=== PATIENT | female | born 1985 | race Caucasian/White ===

== ENCOUNTER 2017-01-10 23:38 | Emergency (ER) | payer OTHER ==
[2017-01-11 00:15] LABS: BASOPHIL % 0.5 % (0-2); PLATELET COUNT 154 x10^3mcL (130-400); RED CELL DISTRIBUTION WIDTH 13.6 % (11.5-14.5)
[2017-01-11 00:25] LABS: CALCIUM 8.4 mg/dL (8.5-10.1); CARBON DIOXIDE 25.6 mmol/L (21-32); CHLORIDE SERUM 105 mmol/L (98-107); CREATININE SERUM 0.7 mg/dL (0.6-1.0); GFR1 > 60 mL/min; GLUCOSE SERUM 97 mg/dL (74-106); POTASSIUM SERUM 3.2 mmol/L (3.5-5.1); SODIUM SERUM 138 mmol/L (136-145)
[2017-01-11 00:29] LABS: ALBUMIN 3.6 g/dL (3.4-5.0); ALKALINE PHOSPHATASE 64 U/L (46-116); ALT/SGPT 28 U/L (14-59); AST/SGOT 16 U/L (15-37); BILIRUBIN TOTAL 0.4 mg/dL (0.20-1.00); TOTAL PROTEIN, SERUM 6.7 g/dL (6.4-8.2)
[2017-01-11 00:37] LABS: CK-MB 0.5 ng/mL (0-3.6)
[2017-01-11 01:11] VITALS: BP 103/76
== END 2017-01-11 01:11 | disposition home or self-care (01) ==
LOC: ED 23:38
PROVIDERS: Emergency Medicine
DX: R07.89 Other chest pain (principal); F41.9 Anxiety disorder, unspecified; F99 Mental disorder, not otherwise specified
CPT/HCPCS: 36415; 85378

== ENCOUNTER 2017-02-01 23:30 | Emergency (ER) | payer OTHER ==
[2017-02-02 01:02] LABS: BASOPHIL % 0.6 % (0-2); PLATELET COUNT 202 x10^3mcL (130-400); RED CELL DISTRIBUTION WIDTH 13.6 % (11.5-14.5)
[2017-02-02 01:28] LABS: ALBUMIN 3.9 g/dL (3.4-5.0); ALKALINE PHOSPHATASE 59 U/L (46-116); ALT/SGPT 28 U/L (14-59); AMYLASE 44 U/L (25-115); AST/SGOT 16 U/L (15-37); BILIRUBIN TOTAL 0.25 mg/dL (0.20-1.00); CALCIUM 8.6 mg/dL (8.5-10.1); CARBON DIOXIDE 26.8 mmol/L (21-32); CHLORIDE SERUM 104 mmol/L (98-107); CREATININE SERUM 0.6 mg/dL (0.6-1.0); GFR1 > 60 mL/min; GLUCOSE SERUM 104 mg/dL (74-106); LIPASE 171 IU/L (73-393); SODIUM SERUM 141 mmol/L (136-145); TOTAL PROTEIN, SERUM 7.3 g/dL (6.4-8.2)
[2017-02-02 01:49] LABS: POTASSIUM SERUM 2.8 mmol/L (3.5-5.1)
[2017-02-02 03:29] VITALS: BP 116/74
== END 2017-02-02 03:29 | disposition home or self-care (01) ==
LOC: ED 23:30
PROVIDERS: Emergency Medicine
DX: R10.31 Right lower quadrant pain (principal); R10.32 Left lower quadrant pain
CPT/HCPCS: 36415; 83880; J1885

== ENCOUNTER 2017-05-09 20:14 | Emergency (ER) | payer OTHER ==
[2017-05-09 22:31] LABS: BASOPHIL % 0.4 % (0-2); PLATELET COUNT 185 x10^3mcL (130-400); RED CELL DISTRIBUTION WIDTH 14.3 % (11.5-14.5)
[2017-05-09 22:41] LABS: CALCIUM 8.8 mg/dL (8.5-10.1); CHLORIDE SERUM 104 mmol/L (98-107); CREATININE SERUM 0.5 mg/dL (0.6-1.0); GFR1 > 60 mL/min; GLUCOSE SERUM 94 mg/dL (74-106); POTASSIUM SERUM 3.7 mmol/L (3.5-5.1); SODIUM SERUM 140 mmol/L (136-145)
[2017-05-09 22:45] LABS: ALBUMIN 3.7 g/dL (3.4-5.0); ALKALINE PHOSPHATASE 57 U/L (46-116); ALT/SGPT 28 U/L (14-59); AMYLASE 51 U/L (25-115); AST/SGOT 15 U/L (15-37); LIPASE 180 IU/L (73-393); TOTAL PROTEIN, SERUM 7.2 g/dL (6.4-8.2)
[2017-05-10 00:45] VITALS: BP 126/70
== END 2017-05-10 00:45 | disposition home or self-care (01) ==
LOC: ED 20:14
PROVIDERS: Emergency Medicine
DX: N83.201 Unspecified ovarian cyst, right side (principal)
CPT/HCPCS: 36415

== ENCOUNTER 2017-06-03 23:29 | Emergency (ER) | payer OTHER ==
[2017-06-04 01:46] VITALS: BP 128/68
== END 2017-06-04 01:47 | disposition home or self-care (01) ==
LOC: ED 23:29
DX: F12.980 Cannabis use, unspecified with anxiety disorder (principal)
CPT/HCPCS: J2060

== ENCOUNTER 2018-03-13 00:26 | Emergency (ER) | payer OTHER ==
[2018-03-13 00:31] VITALS: BP 122/84; Ht 154.9 cm
== END 2018-03-13 03:09 | disposition left against medical advice (07) ==
LOC: ED 00:26
DX: Z53.21 Procedure and treatment not carried out due to patient leaving prior to being seen by health care provider (principal)

== ENCOUNTER 2019-05-22 15:24 | Emergency (ER) | payer OTHER ==
[~2019-05-22] VITALS: Ht 152.4 cm; Wt 61.7 kg
[2019-05-22 15:41] VITALS: Ht 152.4 cm; Wt 61.7 kg
[2019-05-22 18:38] VITALS: BP 118/70
== END 2019-05-22 18:38 | disposition home or self-care (01) ==
LOC: ED 15:24
DX: J68.9 Unspecified respiratory condition due to chemicals, gases, fumes and vapors (principal); R05 Cough

== ENCOUNTER 2019-08-31 13:39 | Emergency (ER) | payer OTHER ==
[~2019-08-31] VITALS: Ht 152.4 cm; Wt 64.0 kg
[2019-08-31 13:43] VITALS: BP 119/81; Ht 152.4 cm; Wt 64.0 kg
== END 2019-08-31 17:16 | disposition home or self-care (01) ==
LOC: ED 13:39
DX: S09.8XXA Other specified injuries of head, initial encounter (principal); J45.901 Unspecified asthma with (acute) exacerbation; N80.9 Endometriosis, unspecified; W22.8XXA Striking against or struck by other objects, initial encounter; Y93.89 Activity, other specified; Y92.89 Other specified places as the place of occurrence of the external cause; Y99.8 Other external cause status

== ENCOUNTER 2019-10-03 19:15 | Emergency (ER) | payer OTHER ==
[~2019-10-03] VITALS: Ht 152.4 cm; Wt 64.1 kg
[2019-10-03 19:27] VITALS: Ht 152.4 cm; Wt 64.1 kg
[2019-10-03 20:34] LABS: CARBON DIOXIDE 25.2 mmol/L (21-32); CHLORIDE SERUM 106 mmol/L (98-107); CREATININE SERUM 0.6 mg/dL (0.6-1.0); GFR1 > 60 mL/min; GLUCOSE SERUM 103 mg/dL (74-106); POTASSIUM SERUM 3.5 mmol/L (3.5-5.1); SODIUM SERUM 141 mmol/L (136-145)
[2019-10-03 20:38] LABS: ALBUMIN 3.8 g/dL (3.4-5.0); ALKALINE PHOSPHATASE 65 U/L (46-116); ALT/SGPT 41 U/L (14-59); AST/SGOT 26 U/L (15-37); BASOPHIL % 0.6 % (0-2); BILIRUBIN TOTAL 0.26 mg/dL (0.20-1.00); MAGNESIUM 1.9 mg/dL (1.8-2.4); PLATELET COUNT 227 x10^3mcL (130-400); TOTAL PROTEIN, SERUM 7.5 g/dL (6.4-8.2)
[2019-10-03 20:41] LABS: RED CELL DISTRIBUTION WIDTH 15.5 % (11.5-14.5)
[2019-10-03 22:46] VITALS: BP 103/76
[2019-10-03 23:25] LABS: AMPHETAMINE QUAL UR NONE DETECTED (See below)
== END 2019-10-03 22:46 | disposition home or self-care (01) ==
LOC: ED 19:15
PROVIDERS: Emergency Medicine
DX: R07.89 Other chest pain (principal); R11.10 Vomiting, unspecified; J45.909 Unspecified asthma, uncomplicated; G89.29 Other chronic pain; M25.562 Pain in left knee
CPT/HCPCS: 36415; J1885

== ENCOUNTER 2019-12-31 20:48 | Emergency (ER) | payer OTHER ==
[~2019-12-31] VITALS: Ht 152.4 cm; Wt 65.8 kg
[2019-12-31 21:40] LABS: BASOPHIL % 0.3 % (0-2); PLATELET COUNT 204 x10^3mcL (130-400)
[2019-12-31 21:42] LABS: RED CELL DISTRIBUTION WIDTH 15.2 % (11.5-14.5)
[2019-12-31 21:52] LABS: CARBON DIOXIDE 25.1 mmol/L (21-32); CHLORIDE SERUM 104 mmol/L (98-107); CREATININE SERUM 0.8 mg/dL (0.6-1.0); GFR1 > 60 mL/min; GLUCOSE SERUM 102 mg/dL (74-106); POTASSIUM SERUM 3.2 mmol/L (3.5-5.1); SODIUM SERUM 139 mmol/L (136-145)
[2019-12-31 21:58] LABS: ALKALINE PHOSPHATASE 53 U/L (46-116); ALT/SGPT 25 U/L (14-59); AST/SGOT 10 U/L (15-37); BILIRUBIN TOTAL 0.27 mg/dL (0.20-1.00); LIPASE 158 IU/L (73-393); TOTAL PROTEIN, SERUM 7.4 g/dL (6.4-8.2)
[2019-12-31 23:48] VITALS: BP 130/70
== END 2019-12-31 23:48 | disposition home or self-care (01) ==
LOC: ED 20:48
PROVIDERS: Emergency Medicine
DX: N12 Tubulo-interstitial nephritis, not specified as acute or chronic (principal); J45.909 Unspecified asthma, uncomplicated; K21.9 Gastro-esophageal reflux disease without esophagitis; G89.29 Other chronic pain
CPT/HCPCS: J0696; J1885; J7030; Q0092

== ENCOUNTER 2020-01-02 20:05 | Emergency (ER) | payer OTHER ==
[~2020-01-02] VITALS: Ht 167.6 cm; Wt 66.7 kg
[2020-01-02 20:17] VITALS: Ht 167.6 cm; Wt 66.7 kg
[2020-01-02 21:52] LABS: BASOPHIL % 0.6 % (0-2); PLATELET COUNT 178 x10^3mcL (130-400)
[2020-01-02 21:53] LABS: RED CELL DISTRIBUTION WIDTH 15.7 % (11.5-14.5)
[2020-01-02 21:59] LABS: CALCIUM 8.5 mg/dL (8.5-10.1); CARBON DIOXIDE 27.1 mmol/L (21-32); CHLORIDE SERUM 103 mmol/L (98-107); CREATININE SERUM 0.7 mg/dL (0.6-1.0); GFR1 > 60 mL/min; GLUCOSE SERUM 97 mg/dL (74-106); POTASSIUM SERUM 3.8 mmol/L (3.5-5.1); SODIUM SERUM 138 mmol/L (136-145)
[2020-01-02 22:04] LABS: ALBUMIN 3.5 g/dL (3.4-5.0); ALKALINE PHOSPHATASE 51 U/L (46-116); ALT/SGPT 50 U/L (14-59); AST/SGOT 37 U/L (15-37); BILIRUBIN TOTAL 0.2 mg/dL (0.20-1.00); TOTAL PROTEIN, SERUM 6.7 g/dL (6.4-8.2)
[2020-01-02 22:27] LABS: microscopic required? NO
[2020-01-02 22:36] LABS: UA SPECIFIC GRAVITY 1.015 (1.005-1.035); urine erythrocyte NEGATIVE (NEGATIVE)
[2020-01-03 01:37] VITALS: BP 120/77
== END 2020-01-03 01:37 | disposition home or self-care (01) ==
LOC: ED 20:05
PROVIDERS: Emergency Medicine
DX: R42 Dizziness and giddiness (principal); M54.9 Dorsalgia, unspecified; T36.8X5A Adverse effect of other systemic antibiotics, initial encounter; J45.909 Unspecified asthma, uncomplicated; Y92.89 Other specified places as the place of occurrence of the external cause
CPT/HCPCS: J1885; J2405; J7030

== ENCOUNTER 2020-01-30 02:29 | Emergency (ER) | payer OTHER ==
[~2020-01-30] VITALS: Ht 152.4 cm; Wt 70.8 kg
[2020-01-30 02:35] VITALS: Ht 152.4 cm; Wt 70.8 kg
[2020-01-30 04:58] LABS: BASOPHIL % 0.5 % (0-2); PLATELET COUNT 179 x10^3mcL (130-400); RED CELL DISTRIBUTION WIDTH 17.4 % (11.5-14.5)
[2020-01-30 05:12] LABS: ALBUMIN 3.7 g/dL (3.4-5.0); ALKALINE PHOSPHATASE 62 U/L (46-116); ALT/SGPT 30 U/L (14-59); AST/SGOT 11 U/L (15-37); BILIRUBIN TOTAL 0.16 mg/dL (0.20-1.00); CALCIUM 8.7 mg/dL (8.5-10.1); CARBON DIOXIDE 28.4 mmol/L (21-32); CHLORIDE SERUM 102 mmol/L (98-107); CREATININE SERUM 0.7 mg/dL (0.6-1.0); GFR1 > 60 mL/min; GLUCOSE SERUM 105 mg/dL (74-106); LIPASE 168 IU/L (73-393); POTASSIUM SERUM 3.8 mmol/L (3.5-5.1); SODIUM SERUM 136 mmol/L (136-145); TOTAL PROTEIN, SERUM 7.1 g/dL (6.4-8.2)
[2020-01-30 06:14] VITALS: BP 107/78
== END 2020-01-30 06:13 | disposition home or self-care (01) ==
LOC: ED 02:29
PROVIDERS: Emergency Medicine
DX: K29.70 Gastritis, unspecified, without bleeding (principal); K21.9 Gastro-esophageal reflux disease without esophagitis; J45.909 Unspecified asthma, uncomplicated; Z98.890 Other specified postprocedural states
CPT/HCPCS: 36415; Q0092; Q0162

== ENCOUNTER 2020-03-03 06:55 | Emergency (ER) | payer OTHER ==
[~2020-03-03] VITALS: Ht 152.4 cm; Wt 70.8 kg
[2020-03-03 08:15] LABS: BASOPHIL % 0.4 % (0-2); PLATELET COUNT 204 x10^3mcL (130-400)
[2020-03-03 08:16] LABS: CALCIUM 9.2 mg/dL (8.5-10.1); CARBON DIOXIDE 28.7 mmol/L (21-32); CHLORIDE SERUM 99 mmol/L (98-107); CREATININE SERUM 0.7 mg/dL (0.6-1.0); GFR1 > 60 mL/min; GLUCOSE SERUM 95 mg/dL (74-106); POTASSIUM SERUM 3.6 mmol/L (3.5-5.1); SODIUM SERUM 136 mmol/L (136-145)
[2020-03-03 08:20] LABS: ALBUMIN 3.8 g/dL (3.4-5.0); ALKALINE PHOSPHATASE 61 U/L (46-116); ALT/SGPT 51 U/L (14-59); AST/SGOT 22 U/L (15-37); BILIRUBIN TOTAL 0.5 mg/dL (0.20-1.00); LIPASE 145 IU/L (73-393); TOTAL PROTEIN, SERUM 7.5 g/dL (6.4-8.2)
[2020-03-03 08:23] LABS: RED CELL DISTRIBUTION WIDTH 16.8 % (11.5-14.5)
[2020-03-03 09:57] VITALS: BP 111/79
== END 2020-03-03 09:57 | disposition home or self-care (01) ==
LOC: ED 06:55
PROVIDERS: Emergency Medicine
DX: R07.89 Other chest pain (principal); R42 Dizziness and giddiness; J45.909 Unspecified asthma, uncomplicated; N83.209 Unspecified ovarian cyst, unspecified side; N80.9 Endometriosis, unspecified; K21.9 Gastro-esophageal reflux disease without esophagitis
CPT/HCPCS: J1885; Q0092